=== PATIENT | female | born 1955 | race Caucasian/White ===

== ENCOUNTER → 2021-06-21 08:29 | Outpatient (CLI) | payer OTHER, SELFPAY ==
[2021-06-21 18:53] LABS: SARS-CoV-2 RNA PCR Negative
== END ==
PROVIDERS: PCP Family Medicine; Visit Provider Nurse Practitioner Family
DX: R68.89 Other general symptoms and signs (principal); Z20.822 Contact with and (suspected) exposure to COVID-19
CPT/HCPCS: C9803; U0003; U0005

== ENCOUNTER → 2021-11-27 11:21 | Outpatient (CLI) | payer SELFPAY ==
--- NOTE | ~2021-11-27 | MM_ITS ---
EXAMINATION: MM screening [facility] BI w zohreh HISTORY: Screening mammogram TECHNIQUE: Craniocaudal and mediolateral oblique 3-D tomosynthesis images were obtained and synthetic 2-D images were generated. CAD analysis was submitted and interpreted. COMPARISON: 05/02/2019, 01/01/2012, 11/03/2011 BREAST PARENCHYMAL COMPOSITION: The breasts are heterogeneously dense, which may obscure small masses . FINDINGS: RIGHT BREAST: There is no evidence of suspicious mass, calcification, or architectural distortion to suggest malignancy. There has been no significant interval change. LEFT BREAST: There is a possible mass in the posterior third of the outer breast best appreciated 8 c m from the nipple on the craniocaudal view. IMPRESSION: 1. Possible left breast mass. 2. Additional mammographic views and possible breast ultrasound are recommended. BI-RADS Category 0: Incomplete: Needs additional imaging evaluation. Reviewed, dictated and finalized at location A. HANT POLICE IMPRESSION: 1. Possible left breast mass. 2. Additional mammographic views and possible breast ultrasound are recommended . BI-RADS Category 0: Incomplete: Needs additional imaging evaluation.
== END ==
DX: Z12.31 Encounter for screening mammogram for malignant neoplasm of breast (principal); R92.8 Other abnormal and inconclusive findings on diagnostic imaging of breast
CPT/HCPCS: 77063; 77067

== ENCOUNTER 2021-12-23 17:23 | Outpatient (CLI) | payer OTHER, SELFPAY ==
--- NOTE | ~2021-12-23 | CT_ITS ---
EXAMINATION: CT pelvis w con DATE: 12/23/2021 18:09 INDICATION: Disorder of menstruation. Left abdominal pain. TECHNIQUE: Computed tomography (CT) of the pelvis was performed with 100 mL Omnipaque 350 intravenous contrast. Automated exposure control and iterative reconstruction technique were employed. The dose- length product was 321.23 mGy-cm. COMPARISON: CT abdomen and pelvis 08/17/2019 FINDINGS: There are changes of appendectomy. There are no dilated loops of bowel. The uterus is absen t. There are no pathologically enlarged lymph nodes. There is no free intraperitoneal fluid. There is mild osteoarthritis of the hips. There is severe lumbar spondylosis. IMPRESSION: 1. No specific etiology for the patient's symptoms. Reviewed, dictated and finalized at location A. CUTTER
[2021-12-23 18:00] LABS: Estimated Glomerular Filt Rate > 60
== END 2021-12-23 17:24 | disposition home or self-care (01) ==
DX: N92.6 Irregular menstruation, unspecified (principal)
CPT/HCPCS: 72193; Q9967

== ENCOUNTER → 2023-01-23 11:43 | Outpatient (CLI) | payer MEDICARE, SELFPAY ==
--- NOTE | ~2023-01-23 | XR_ITS ---
XR shoulder RT min 2V 01/23/2023 11:56 Indication: Chronic right shoulder pain Procedure: 4 views right shoulder Comparison: No prior studies for comparison. Findings: There is mild polyarticular osteoarthritis. No fracture, subluxation or dislocation. No sig nificant joint effusion. No foreign bodies. Impression: 1: Mild polyarticular osteoarthritis of the right shoulder. Reviewed, dictated and finalized at location B. ROASTER Impression: 1: Mild polyarticular osteoarthritis of the right shoulder.
== END ==
PROVIDERS: PCP Family Medicine; Visit Provider Physician Assistant Medical
DX: M19.011 Primary osteoarthritis, right shoulder (principal)
CPT/HCPCS: 73030

== ENCOUNTER 2025-02-01 09:22 | Outpatient (CLI) | payer MEDICARE, SELFPAY ==
--- NOTE | ~2025-02-01 | DEXA_ITS ---
Bone Density Report Name: AMBER QUINONES Age: 69 Sex: Female Ethnicity: White Date of : 1955 Indication: postmenopausal; screening for osteoporosis; Referring Provider: SAMSON BORGES Study: Bone densitometry was performed. Exam Date: February 01, 2025 Accession number: [id number] Bone Density: Region BMD T-score Z-score Classification AP Spine(L1-L4) 1.280 2.1 4.0 Normal Femoral Neck (Left) 0.775 -0.7 1.0 Normal Total Hip (Left) 1.032 0.7 2.1 Normal Femoral Neck (Right) 0.736 -1.0 0.6 Normal Total Hip (Right) 0.988 0.4 1.7 Normal Total Hip Mean 1.010 0.6 1.9 Normal World Health Organization criteria for BMD impression classify patients as: Normal (T-score at or above -1.0), Osteopenia (T-score between -1.0 and -2.5), or Osteoporosis (T-score at or below -2.5). 10-year Fracture Risk: FRAX not reported because: All T-scores for Spine Total, Hip Total, Femoral Neck at or above -1.0 Clinical Information Provided by Patient: Smokes Patient maximum height was 61.0 Menopause Age: 42 Drinks caffeinated beverages Onset of menses at age 18 Number of children 2 Impression: The patient has normal bone mass. The patient has risk factors, including: smoking. Discussion: BONE DENSITY IS ABOVE THE MINIMUM DESIRABLE LEVEL AT ALL SKELETAL SITES TESTED. This patient?s bone mineral density is above the minimum desirable level (T-score -1.0 or better) at all sites measured. The patient should follow a healthful lifestyle (good nutrition with adequate calcium and vitamin D, and appropriate weight-bearing exercise). Follow-Up: Consider repeating this study in 5 years or sooner if there is some new clinical indication. Reported by: JADIEL on 02/01/2025 9:57:00 AM. Reviewed, dictated and finalized at location AUyen JACOBSEN
--- OUTSIDE RECORDS SUMMARY | 2025-02-01 10:13 | XMS_ITS | Data Portability ---
Author Organization [facility] [employer] , [facility] Address [address] [place] [address] Assessment No assessment recorded. Plan of Treatment Reminders Order Date Submit Date Provider Last Modified By Organization Details Last Modified Time Details Appointments None recorded. Lab None recorded. Referral None recorded. Procedures None recorded. Surgeries None recorded. Imaging US, transvagina l 2021 022 [email or web address] Not available 14:21:41 Medication Orders None recorded. Patient TargetsNo targets recorded. Patient InstructionsNo instructions recorded. Reason for Referral None Reported. Results Created Date Observation Date Name Description Value Unit Range Abnormal Flag Note LastModifiedBy Organization Detail LastModifiedTime 12/10/19 22 12/10/2021 US, trans vagin al No observ ation record ed. [email or web address] [address], [place], [address], 12/10/2021 22:46:42 12/27/19 22 12/23/2021 CT, pelvi s, w/ contr ast No observ ation record ed. [email or web address] - [facility] [address], [place], [address], 01/03/2022 09:37:04 Result Notes None recorded. Problems Name Problem SNOMED Code Status Onset Date Resolution Date Notes Provider Name and Address Organization Details Recorded Time Sampling of vagina for Papanicola ou smear Active 2020 Encounter for gynecologic al examination (general) (routine) without abnormal findings; Progress: Stable Added By: Tonie Ramsey Add to Current Problems: YES ProblemStat us: Current Not Available [employer] 03/16/202 2 21:49:43 Screening mammograph y Active 2020 Encounter for screening mammogram for malignant neoplasm of breast; Progress: Stable Added By: Tammi Vela Add to Current Problems: YES ProblemStat us: Current Not Available [facility] 2 21:49:44 Problem Notes None recorded. Procedures Surgical History Date Name Laterality Status Provider Name and Address Organization Details Recorded Time total abdominal hysterectomy completed [employer] IV 12/10/2021 14:06:45 colonoscopy completed Deborah [employer] IV 12/10/2021 14:09:24 Imaging Results Imaging Date Name Status LastModified by Organization Details LastModified Time 12/10/2021 US, transvaginal completed [email or web address] [address], [place], [address], 12/10/2021 22:46:42 12/23/2021 CT, pelvis, w/ contrast completed [address] - [facility]tr [address] [facility], [place], [address], 01/03/2022 09:37:04 Procedure Notes None recorded. Medical Equipment None Reported. Medications Name Sig Start Date Stop Date Status Note LastModified by Organization Details LastModified Time prednisone 10 mg tablet TAKE 3 TABLETS BY MOUTH DAILY active Not Available Not Available No t Available triamcinolone acetonide 0.5 % topical cream APPLY TOPICALLY TO THE AFFECTED AREA TWICE DAILY active Not Available Not Available No t Available azithromycin 250 mg tablet TAKE 2 TABLETS BY MOUTH FOR 1 DAY THEN TAKE 1 TABLET BY MOUTH DAILY FOR 4 DAYS active Not Available Not Available No t Available Vitals Date Recorded Body weight Body mass index (BMI) Body height Systolic blood pressure Diastolic blood pressure Provider Name and Address Organization Details Last Updated DateTime 12/10/2021 44550.22 g 28.2 kg/m2 157.48 cm 114 mm[Hg] 70 mm[Hg] Tonie Ramsey [employer] [facility] 2 17:26:14 Social History Question Answer Notes LastModified by Organizat ion Details LastModified Time Are You Currently Employed? No Retired Information not available 12/10/2021 What Is Your Relationship Status? Information not available 12/10/2021 Are You Sexually Active? No Information not available 12/10/2021 Sex: Unknown Functional Status None recorded. Mental Status None recorded. Family History Relationship Description Onset Age of this Age Resolved Age Notes LastModified by Organization Details LastModified Time Mother Hyperlipidem ia [email or web address] Not available 11/23 14:07:46 Mother Hypertensive disorder [email or web address] Not available 11/23 14:07:56 Mother Type 2 diabetes mellitus [email or web address] Not available 11/23 14:08:27 Maternal Grandfather Myocardial infarction [email or web address] Not available 14:08:07 Father Malignant tumor of colon [email or web address] Not available 11/23 14:08:15 Medical History No medical history recorded. Gynecological History Statement/Question Response Date of Last Pap Smear Obstetrics History GPAL:G 2 P 2 0 0 0 Type Value Full Term 2 Total 2 Past Encounters Encounter ID Performer Location Encounter Start Date Encounter Closed Date Diagnosis/Indication Diagnosis SNOMED-CT Code Diagnosis ICD10 Code Diagnosis Note [id number] Tammi Vela MD [facility] [address] [place] [address] 12/10/2021 16:45:31 12/11/2021 14:21:41 Ovarian pain 557416205 N94.89 ultrasound reviewed. left ovary 1.5 cm, small and atrophic. vaginal cuff clear, uterus and right ovary have been removed. Results discussed. Other dx considerat ion would be diverticul ar issues and a CT would eval that. Mammography abnormal 168 442028 R92.8 pt brings in letter stating abnl scr mammogram. However, we were not sent the results (done at [facility]) Adv Marlin to call the imaging center and see what needs to be ordered. She has a hx of fibrocysti c disease. Health Concerns Section Related Observation LastModified by Organization Detai ls LastModified Time None Recorded Concern Status LastModified by Organization Details LastModified Time None Recorded Advance Directives Directive None Recorded Payers Encounter Date Sequence Insurance Name Policy Number Policy Boucher Covered Member ID Boucher Member ID Guarantor Name 12/10/2021 1 [employer] (PPO) María Salas [id number] María Salas Notes Date Note Type Note Provider Name and Address Organization Details Recorded Time 12/10/2021 text/html María is coming in for an ultrasound to evaluate some left sided pelvic pain she is having. She notes it occurs intermittently, has a sharp or burning quality to it. She does not have any back pain, dysuria, hematuria. Seems to occur most often when getting up out of bed. She denies any bowel changes. She is having an ultrasound today Tammi Vela MD [facility] [place], [address], [facility] 12/10/2021 18:03:03 OBGyn Episode No OBEpisode recorded.
== END 2025-02-01 09:23 | disposition home or self-care (01) ==
LOC: ANHIMG 09:28
PROVIDERS: PCP Family Medicine; Visit Provider Physician Assistant Medical
DX: Z78.0 Asymptomatic menopausal state (principal); Z12.39 Encounter for other screening for malignant neoplasm of breast; Z13.820 Encounter for screening for osteoporosis
CPT/HCPCS: 77080

== ENCOUNTER 2025-02-16 11:02 | Outpatient (CLI) | payer MEDICARE, SELFPAY ==
--- NOTE | ~2025-02-16 | MM_ITS ---
EXAMINATION: MM screening [facility] BI w zohreh HISTORY: Screening TECHNIQUE: Craniocaudal and mediolateral oblique 3-D tomosynthesis images were obtained and synthetic 2-D images were generated. CAD analysis was submitted and interpreted. COMPARISON: 11/27/2021 and dating back to 11/03/2011 BREAST PARENCHYMAL COMPOSITION: The breasts are heterogeneously dense, which may obscure small masses . FINDINGS: Punctate calcifications are detected bilaterally, stable and benign in appearance. Stable parenchymal pattern without suspicious microcalcifications, architectural distortion, discrete masses or significant asymmetry. IMPRESSION: 1. No mammographic evidence of malignancy. 2. Recommend routine screening mammography in one year. BI-RADS Category 2: Benign finding(s). Reviewed, dictated and finalized at location A.
== END 2025-02-16 11:03 | disposition home or self-care (01) ==
LOC: MICIMG 11:02
PROVIDERS: PCP Family Medicine; Visit Provider Physician Assistant Medical
DX: Z12.31 Encounter for screening mammogram for malignant neoplasm of breast (principal)
CPT/HCPCS: 77063; 77067

== ENCOUNTER 2025-02-27 06:36 | Day surgery (SDC) | payer MEDICARE, SELFPAY ==
--- OUTSIDE RECORDS SUMMARY | 2025-02-27 07:31 | XMS_ITS | Data Portability ---
Author Organization [facility] [employer] , [facility] Address [address] [place] [address] Assessment No assessment recorded. Plan of Treatment [...] observ ation record ed. [email or web address] [address], [place], [address], 12/10/2021 22:46:42 12/27/19 22 12/23/2021 CT, pelvi s, w/ contr ast No observ ation record ed. [email or web address] - Breast Ctr [address], [place], [address], 01/03/2022 09:37:04 Result Notes None recorded. Problems [...] Details Recorded Time total abdominal hysterectomy completed [facility] IV 12/10/2021 14:06:45 colonoscopy completed Deborah [employer] IV 12/10/2021 14:09:24 Imaging Results Imaging Date Name Status LastModified by Organization Details LastModified Time 12/10/2021 US, transvaginal completed [email or web address] [address], [place], [address], 12/10/2021 22:46:42 12/23/2021 CT, pelvis, w/ contrast completed [address] - Breast Ctr [address] [facility], [place], [address], 01/03/2022 09:37:04 Procedure Notes None recorded. Medical [...] Address Organization Details Last Updated DateTime 12/10/2021 11022.22 g 28.2 kg/m2 157.48 cm 114 mm[Hg] 70 mm[Hg] Tonie Ramsey [employer] [facility] 2 17:26:14 Social History Question Answer [...] SNOMED-CT Code Diagnosis ICD10 Code Diagnosis Note [id number] Tammi Vela MD [facility] [address] [place] [address] 12/10/2021 16:45:31 12/11/2021 14:21:41 Ovarian pain 292931647 N94.89 ultrasound reviewed. left ovary 1.5 cm, small and atrophic. vaginal cuff clear, uterus and right ovary have been removed. Results discussed. Other dx considerat ion would be diverticul ar issues and a CT would eval that. Mammography abnormal 168 584879 R92.8 pt brings in letter stating abnl scr mammogram. However, we were not sent the results (done at [facility]) Adv Marlin to call the imaging center [...] [employer] - MULTIPLAN (PPO) María Salas [id number] María Salas Notes Date Note Type Note [...] having an ultrasound today Tammi Vela MD [facility] [place], [address], [facility] 12/10/2021 18:03:03 OBGyn Episode No OBEpisode recorded.
[2025-02-27 07:43] VITALS: BP 142/83; PULSE 95; RESP 16; TEMP 36.4; O2SAT 100
[2025-02-27] MEDS: LACTATED RINGERS 1,000 ML 150 ML IV CONT (07:45)
--- NOTE | 2025-02-27 08:34 | PM.IMHP ---
H&P: HPI History of Present Illness Date/Time: 02/27/25 08:34 Chief Complaint: Family history of colorectal cancer - history of polyps Narrative: The patient has a history of colonic polyps, the last colonoscopy was 7 years ago. In addition her father of colon cancer. Review of Systems Review of Systems: All systems reviewed & are unremarkable except as noted in HPI and below PMFSH Past Medical History Medical History BMI 27.0-27.9,adult Family History Family History Mother Family history of elevated blood lipids Father Carcinoma of colon Other Family history of cardiovascular disease Social History Social History Smoking packs per day: 0.5 Smoking cigarettes per day: 10.0 Years smoked: 50 Smoking pack-years: 25.00 Smoking status: Current every day smoker Alcohol intake: current Drinks per week: 4 Living arrangements: with family Spiritual care concerns: No Meds Home Medications and Allergies Home Medications ?Medication ?Instructions ?Recorded ?Confirmed ?Type doxycycline hyclate 20 mg tablet 20 mg PO BID 09/13/24 02/27/25 History multivitamin (Daily Multi-Vitamin 1 tablet PO DAILY 02/06/25 02/27/25 History tablet) Allergies Allergy/AdvReac Type Severity Reaction Status Date / Time No Known Allergies Allergy Verified 02/27/25 07:42 Vital Signs Vital Signs - 24 hr 02/27/25 07:43 Temperature 97.6 F Pulse Rate 95 Respiratory Rate 16 Blood Pressure 142/83 H Pulse Oximetry 100 Oxygen Delivery Room Air Exam Const: General: cooperative and healthy appearing Resp: Effort & Inspection: normal respiratory effort and able to speak in complete sentences Auscultation: clear to auscultation bilaterally Cardio: Rate: regular rate Rhythm: regular rhythm GI: Inspection: normal to inspection GI Palp: No No hepatosplenomegaly present Auscultation: normal bowel sounds Rectal Exam: deferred Skin: General skin exam: normal color Psych: Appearance: grossly normal Mental Status: mental status grossly normal Assessment and Plan Assessment and plan (1) Family history of colon cancer in father: Code(s): Z80.0 - Family history of malignant neoplasm of digestive organs Status: Acute Assessment and Plan: The patient is deemed a good candidate for the procedure. Consent signed. Will proceed.
--- NOTE | 2025-02-27 08:37 | P.PNAN_ITS ---
Anes - Initial Pre Proc Eval Procedure: Operation Date: 02/27/25 09:00 Proposed Procedures p Diagnostic Colonoscopy - Vance Larry MD Date/Time: 02/27/25 08:37 Surgeon: Vance Larry MD Pre Op Diagnosis: Family History of Colon Cancer Patient Data Age: 69 Gender: F Height: 1.57 m Weight: 70.65 kg Last Vital Signs Temp 36.4 C 02/27/25 07:43 Pulse 95 02/27/25 07:43 Resp 16 02/27/25 07:43 BP 142/83 H 02/27/25 07:43 Pulse Ox 100 02/27/25 07:43 O2 Del Method Room Air 02/27/25 07:43 Allergies Allergy/AdvReac Type Severity Reaction Status Date / Time No Known Allergies Allergy Verified 02/27/25 07:42 Home Medications ?Medication ?Instructions ?Recorded ?Confirmed ?Type doxycycline hyclate 20 mg tablet 20 mg PO BID 09/13/24 02/27/25 History multivitamin (Daily Multi-Vitamin 1 tablet PO DAILY 02/06/25 02/27/25 History tablet) Patient hx anesthesia problems: none Family hx anesthesia problems: none Results Review: All pre-operative results and documents have been reviewed as part of the pre- operative evaluation. [facility] Past Medical History Medical History BMI 27.0-27.9,adult Family History Family History Mother Family history of elevated blood lipids Father Carcinoma of colon Other Family history of cardiovascular disease Social History Social History Smoking packs per day: 0.5 Smoking cigarettes per day: 10.0 Years smoked: 50 Smoking pack-years: 25.00 Smoking status: Current every day smoker Alcohol intake: current Drinks per week: 4 Living arrangements: with family Spiritual care concerns: No Anes - Eval Final PreProcedure Day of Procedure 02/27/25 08:37 Patient weight: overweight Heart: regular rate and rhythm Lungs: decreased breath sounds Airway: Mallampati scale class II Neurological: alert and oriented Last oral intake: >/= 8 hours ASA classification: III Emergent: no Anesthetic plan: proceed Anesthesia type and monitoring: general GIVS and standard monitoring Results Review: All pre-operative results and documents have been reviewed as part of the pre- operative evaluation. Informed Consent: The patient's anesthetic plan and its attendant risks and benefits were discussed with the patient/family/POA. Questions were solicited and answers provided to the satisfaction of the patient/family/POA.
[2025-02-27] MEDS: SIMETHICONE ORAL SUSPENSION 20 MG/0.3 ML 30 ML BOTTLE 0.6 ML IRRIGATION (08:59)
[2025-02-27 09:10] VITALS: BP 106/62; PULSE 65; RESP 14; O2SAT 100
--- NOTE | 2025-02-27 09:18 | WPDANESPN ---
Anes - Prog Note Post-Op Date/Time: 02/27/25 09:18 Cardiovascular status: normal Respiratory status: normal Airway patency: baseline Mental status: baseline Post-Op hydration status: normal Vital Signs: Last Vital Signs Temp 36.4 C 02/27/25 07:43 Pulse 65 02/27/25 09:10 Resp 14 02/27/25 09:10 BP 106/62 02/27/25 09:10 Pulse Ox 100 02/27/25 09:10 O2 Del Method Room Air 02/27/25 09:10 Pain Score (VAS): 0 I/O: Intake & Output 02/26/25 02/27/25 02/27/25 23:59 07:59 15:59 Intake Total 400 Balance 400 Patient Feedback: Patient satisfied with anesthetic care.
[2025-02-27 09:20] VITALS: BP 108/69; PULSE 70; RESP 16; O2SAT 100
[2025-02-27 09:30] VITALS: BP 123/75; PULSE 75; RESP 16; O2SAT 100
== END 2025-02-27 09:40 | disposition home or self-care (01) ==
PROVIDERS: PCP Family Medicine; Visit Provider Internal Medicine Gastroenterology
PROC: 0DJD8ZZ Inspection of Lower Intestinal Tract, Via Natural or Artificial Opening Endoscopic (ICD-10-PCS; CPT 45378; principal; 2025-02-27 09:00)
DX: Z12.11 Encounter for screening for malignant neoplasm of colon (principal); K63.5 Polyp of colon; K62.1 Rectal polyp; Z80.0 Family history of malignant neoplasm of digestive organs
CPT/HCPCS: 45385

== ENCOUNTER 2025-02-27 14:11 | Outpatient (NON) | payer MEDICARE, SELFPAY ==
--- OUTSIDE RECORDS SUMMARY | 2025-02-28 15:48 | XMS_ITS | Data Portability ---
Author Organization [facility] [employer] , [facility] Address [address] [place] [address] Assessment No assessment recorded. Plan of Treatment [...] observ ation record ed. [email or web address] [address], [place], [address], 12/10/2021 22:46:42 12/27/19 22 12/23/2021 CT, pelvi s, w/ contr ast No observ ation record ed. [email or web address] - Breast Ctr [address], [place], [address], 01/03/2022 09:37:04 Result Notes None recorded. Problems [...] Problems: YES ProblemStat us: Current Not Available [facility] 2 21:49:44 Problem Notes None recorded. Procedures Surgical History Date Name Laterality Status Provider Name and Address Organization Details Recorded Time total abdominal hysterectomy completed [employer] IV 12/10/2021 14:06:45 colonoscopy completed Deborah [employer] IV 12/10/2021 14:09:24 Imaging Results Imaging Date Name Status LastModified by Organization Details LastModified Time 12/10/2021 US, transvaginal completed [email or web address] [address], [place], [address], 12/10/2021 22:46:42 12/23/2021 CT, pelvis, w/ contrast completed [address] - Breast Ctr [address] [facility], [place], [address], 01/03/2022 09:37:04 Procedure Notes None recorded. Medical [...] Address Organization Details Last Updated DateTime 12/10/2021 07211.22 g 28.2 kg/m2 157.48 cm 114 mm[Hg] 70 mm[Hg] Tonie Ramsey [employer] [facility] 2 17:26:14 Social History Question Answer [...] SNOMED-CT Code Diagnosis ICD10 Code Diagnosis Note [id number] Tammi Vela MD [facility] [address] [place] [address] 12/10/2021 16:45:31 12/11/2021 14:21:41 Ovarian pain 394399632 N94.89 ultrasound reviewed. left ovary 1.5 cm, small and atrophic. vaginal cuff clear, uterus and right ovary have been removed. Results discussed. Other dx considerat ion would be diverticul ar issues and a CT would eval that. Mammography abnormal 168 [id number] R92.8 pt brings in letter stating abnl scr mammogram. However, we were not sent the results (done at [facility]) Adv Marlin to call the imaging [...] [employer] - MULTIPLAN (PPO) María Salas [id number] María Salas Notes Date Note Type Note [...] having an ultrasound today Tammi Vela MD [facility] [place], [address], [facility] 12/10/2021 18:03:03 OBGyn Episode No OBEpisode recorded.
== END 2025-02-27 14:12 | disposition home or self-care (01) ==
LOC: ANHLAB 02-28 14:12
PROVIDERS: PCP Family Medicine; Visit Provider Internal Medicine Gastroenterology
DX: K63.5 Polyp of colon (principal)
CPT/HCPCS: 88305